=== PATIENT | male | born 1950 | race Caucasian/White ===

== ENCOUNTER 2023-10-15 08:38 | Emergency (ER) | payer MEDICARE, BC ==
[~2023-10-15] VITALS: Ht 162.6 cm; Wt 74.5 kg
[2023-10-15 09:04] VITALS: TEMP 98.6
[2023-10-15] MEDS ORDERED: VALA10002 PO (09:23)
[2023-10-15 09:54] VITALS: BP 142/64; PULSE 52; RESP 16; O2SAT 98
== END 2023-10-15 09:57 | disposition home or self-care (01) ==
LOC: ER 08:39
DX: B02.8 Zoster with other complications (principal); Z79.2 Long term (current) use of antibiotics
CPT/HCPCS: 99283